=== PATIENT | male | born 1985 | race Caucasian/White ===

== ENCOUNTER 2018-12-30 12:06 | Emergency (ER) | payer MEDICAID ==
[~2018-12-30] VITALS: Ht 185.4 cm; Wt 88.5 kg
[2018-12-30 12:18] VITALS: BP 129/89
[2018-12-30] MEDS ORDERED: IPRATROPIUM 0.02% 0.5 MG/2.5 ML NEBU INH ONE (12:25)
[2018-12-30] MEDS ORDERED: ALBUTEROL 0.083% 2.5 MG/3 ML NEBU INH ONE ×2 (12:25→13:05)
[2018-12-30] MEDS ORDERED: predniSONE 20 MG TAB PO ONE (12:25)
--- NOTE | 2018-12-30 12:30 | NUR ---
PATIENT PRESENTS TO ED WITH c/o asthma exacerbation , sob---no accessory muscle use noted at this time dry cough--- . DENIES N/V/D; SKIN IS PINK/WARM/DRY; AAOX4 WITH EVEN AND STEADY GAIT; LUNGS mild wheezing to bases; HR EVEN AND REGULAR; PATIENT STATES PAIN OF 0/10 AT THIS TIME; VSS; PATIENT POSITIONED FOR COMFORT; HOB ELEVATED; BEDRAILS UP X2; BED DOWN. ER MD MADE AWARE OF PT STATUS.
[2018-12-30 14:00] VITALS: BP 133/73
--- NOTE | 2018-12-30 14:01 | NUR ---
Patient discharged with v/s stable. Written and verbal after care instructions given and explained. Patient alert, oriented and verbalized understanding of instructions. Ambulatory with steady gait. All questions addressed prior to discharge. ID band removed. Patient advised to follow up with PMD. Rx of TESSALON,ALBUTEROL,DULERA, CLARITIN given. Patient educated on indication of medication including possible reaction and side effects. Opportunity to ask questions provided and answered.
== END 2018-12-30 14:01 | disposition home or self-care (01) ==
LOC: MED 12:06
DX: J45.909 Unspecified asthma, uncomplicated (principal); B34.9 Viral infection, unspecified; Z88.8 Allergy status to other drugs, medicaments and biological substances
CPT/HCPCS: 71045; 94640; 99283; J7613; J7644; Q0092